=== PATIENT | male | born 2000 | race Caucasian/White ===

== ENCOUNTER 2024-04-28 20:29 | Emergency (ER) | payer OTHER ==
[~2024-04-28] VITALS: Ht 170.2 cm; Wt 104.5 kg
[2024-04-28 22:02] VITALS: BP 124/80; PULSE 77; RESP 18; TEMP 98.5; O2SAT 98
== END 2024-04-28 22:13 | disposition home or self-care (01) ==
LOC: ER 20:30
DX: S62.396A Other fracture of fifth metacarpal bone, right hand, initial encounter for closed fracture (principal); W01.0XXA Fall on same level from slipping, tripping and stumbling without subsequent striking against object, initial encounter; Y93.89 Activity, other specified; Y92.89 Other specified places as the place of occurrence of the external cause; Y99.8 Other external cause status
CPT/HCPCS: 29125; 73130; 99284; A4565

== ENCOUNTER 2024-05-02 18:53 | Emergency (ER) | payer BC, OTHER ==
[~2024-05-02] VITALS: Ht 170.2 cm; Wt 107.9 kg
[2024-05-02 19:03] VITALS: BP 162/115; PULSE 76; TEMP 98.5; O2SAT 100
[2024-05-02 20:16] VITALS: RESP 18
== END 2024-05-02 20:17 | disposition home or self-care (01) ==
LOC: ER 18:54
DX: S62.306D Unspecified fracture of fifth metacarpal bone, right hand, subsequent encounter for fracture with routine healing (principal); X58.XXXD Exposure to other specified factors, subsequent encounter
CPT/HCPCS: 99281